=== PATIENT | female | born 1990 | race Caucasian/White ===

== ENCOUNTER 2021-11-08 14:00 | Outpatient (CLI) | payer BC | END 2021-11-08 14:01 | disposition home or self-care (01) | LOC: BICRAD 14:00 | PROVIDERS: ATTEND Family Medicine | DX: M79.671 Pain in right foot (principal); M79.672 Pain in left foot; M54.30 Sciatica, unspecified side; M79.606 Pain in leg, unspecified | CPT/HCPCS: 72100 ==